=== PATIENT | female | born 1985 | race Hispanic/Latino ===

== ENCOUNTER 2017-02-12 23:35 | Emergency (ER) | payer OTHER ==
[2017-02-12 23:54] VITALS: BMI 23.8
[2017-02-12 23:59] VITALS: BP 119/71; PULSE 97; RESP 16; TEMP 98.7; O2SAT 98
[2017-02-13 00:59] LABS: SQUAMOUS EPITHIAL 5 /hpf (0-5); URINE BACTERIA FEW (<OCC); URINE BILIRUBIN NEGATIVE (NEGATIVE); URINE BLOOD NEGATIVE (NEGATIVE); URINE CLARITY SLIGHTY-CLOUDY (Clear); URINE COLOR YELLOW (YELLOW); URINE GLUCOSE (UA) NEG (Normal); URINE LEUKOCYTE ESTERASE TRACE Leu/uL (Negative); URINE NITRATE NEGATIVE (NEGATIVE); URINE PROTEIN NEGATIVE (NEGATIVE); URINE UROBILINOGEN 0.2-1.0 mg/dL (0.2-1.0)
--- NOTE | 2017-02-13 01:40 | ED PDOC ---
HPI: Abdomen Time Seen by Provider: 02/13/17 00:10 Chief Complaint (Nursing): Abdominal Pain Chief Complaint (Provider): Abdominal Distension History Per: Patient History/Exam Limitations: no limitations Onset/Duration Of Symptoms: Days (x1) Outside of [place] travel?: No Current Symptoms Are (Timing): Still Present Severity: Mild Quality Of Discomfort: "Pain" Associated Symptoms: denies: Fever, Nausea, Vomiting, Diarrhea, Constipation Additional Complaint(s): 31 year old female presents to ED with complaints of abdominal distension and pain x1 day and has no past medical history. Patient reports having abdominal pain, fever, and body aches last week, which were diagnosed at an urgent care as symptoms of a viral illness. Patient notes that the symptoms resolved until today when she noticed abdominal distension and mild abdominal pain. (-) fever, nausea, vomiting, diarrhea, constipation, cough, or SOB. Patient notes concern because she has a flight scheduled and wants to know if she can travel. Also states that she is currently taking Clomid for ovulation induction. PCP: Gene Devlin Past Medical History Reviewed: Historical Data, Nursing Documentation, Vital Signs Vital Signs: Last Vital Signs Temp 98.7 F 02/12/17 23:54 Pulse 97 H 02/12/17 23:54 Resp 16 02/12/17 23:54 BP 119/71 02/12/17 23:54 Pulse Ox 98 02/13/17 02:58 - Medical History PMH: No Chronic Diseases - Surgical History Surgical History: No Surg Hx - Family History Family History: States: No Known Family Hx - Social History Current smoker - smoking cessation education provided: No Ex-Smoker (has not smoked in the last 12 months): No Alcohol: None Drugs: Denies - Allergies Allergies/Adverse Reactions: Allergies Allergy/AdvReac Type Severity Reaction Status Date / Time No Known Allergies Allergy Verified 02/12/17 23:54 Review of Systems ROS Statement: Except As Marked, All Systems Reviewed And Found Negative Constitutional: Negative for: Fever Respiratory: Negative for: Cough, Shortness of Breath Gastrointestinal: Positive for: Abdominal Pain, Other (abdominal distenstion). Negative for: Nausea, Vomiting, Diarrhea, Constipation Physical Exam - Reviewed Nursing Documentation Reviewed: Yes Vital Signs Reviewed: Yes - Physical Exam Appears: Positive for: Non-toxic, No Acute Distress Skin: Positive for: Normal Color, Warm, Dry Eye Exam: Positive for: Normal appearance ENT: Positive for: Normal ENT Inspection Neck: Positive for: Normal, Painless ROM, Supple Cardiovascular/Chest: Positive for: Regular Rate, Rhythm. Negative for: Murmur Respiratory: Positive for: Normal Breath Sounds. Negative for: Respiratory Distress Gastrointestinal/Abdominal: Positive for: Soft, Tenderness (mild lower abdominal tenderness), Distended. Negative for: Normal Exam, Guarding, Rebound Back: Positive for: Normal Inspection Extremity: Positive for: Normal ROM. Negative for: Deformity Neurologic/Psych: Positive for: Alert, Oriented. Negative for: Motor/Sensory Deficits - ECG O2 Sat by Pulse Oximetry: 98 (RA) Pulse Ox Interpretation: Normal Medical Decision Making Medical Decision Makin Initial impression: abdominal distension in setting of recent treatment with Clomid Initial plan: * UA * US PELVIS/TRANSVAG Deferred labs due to patient recently having normal blood work at urgent care. 0254 US FINDINGS Uterus/cervix: No myometrial mass. Endometrial stripe measures 8 mm. Right ovary: The right ovary measures 6.2 x 5.7 x 4.9 cm. Multiple ovarian follicles/cysts measuring up to 3.3 cm. Blood flow is demonstrated in the right ovary. Left ovary: The left ovary measures 5.6 x 3.4 x 3.7 cm. Multiple ovarian follicles measuring up to 2.3 cm. Blood flow is demonstrated in the left ovary. Free fluid: Moderate amount of free fluid in the pelvis. Bladder: Unremarkable as visualized. Wall is normal thickness for degree of distention. IMPRESSION: Enlarged ovaries containing multiple follicles/cysts, with moderate free fluid in the pelvis. Findings suggest ovarian hyperstimulation syndrome. 0300 Findings are secondary to use of Clomid. Patient will contact her [employer] directly in the morning for further guidance regarding travel. Patient is medically stable and ready for discharge. Counseling has been provided and patient is in agreement. Return if symptoms persist or acutely worsen. Scribe Attestation: Documented by Maryjane Foster acting as a scribe for Natanael Carballo MD. Scribe Attestation: All medical record entries made by the Scribe were at my direction and personally dictated by me. I have reviewed the chart and agree that the record accurately reflects my personal performance of the history, physical exam, medical decision making, and the department course for this patient. I have also personally directed, reviewed, and agree with the discharge instructions and disposition. Disposition - Clinical Impression Clinical Impression: Ovarian hyperstimulation syndrome - Disposition Referrals: Gene Devlin MD [Staff Provider] - Disposition: Routine/Home Disposition Time: 03:00 Condition: STABLE Additional Instructions: Please call Dr Devlin prior to your travel for clearance
--- NOTE | 2017-02-13 09:17 | US ---
HISTORY: pelvic pain/distension COMPARISON: None available. TECHNIQUE: Transvaginal pelvic ultrasound was performed. FINDINGS: UTERUS: Measures 8.3 x 3.0 x 4.5 cm. Normal in size and appearance. No fibroid or other mass lesion seen. ENDOMETRIUM: Measures 8.0 mm in diameter. Unremarkable. CERVIX: No cervical abnormality identified. RIGHT OVARY: Enlarged and measures 6.2 x 5.7 x 4.9 cm. No solid mass. Normal flow. There are multiple large variable size follicle, the largest measures 2.8 x 3.3 x 2.5 cm. . LEFT OVARY: Enlarged and measures 5.6 x 3.4 x 3.7 cm. No solid mass. Normal flow. There are multiple large variable sized follicles, the largest measures 2.3 x 1.8 x 1.6 cm. There is moderate free fluid in the pelvis. OTHER FINDINGS: None. IMPRESSION: Bilateral enlarged ovaries. Moderate amount of free fluid in the pelvis. A preliminary report was provided by [employer] [facility].
== END 2017-02-13 03:22 | disposition home or self-care (01) ==
LOC: H.ER 23:35
DX: N98.1 Hyperstimulation of ovaries (principal)